=== PATIENT | female | born 2000 | race Caucasian/White ===

== ENCOUNTER 2021-11-11 15:13 | Day surgery (SDC) | payer OTHER ==
[2021-11-11] MEDS ORDERED: hydrALAZINE 20 MG/ML VIAL SLOW IVP PRN (15:43)
[2021-11-11] MEDS: Lactated Ringer's 1,000 ML IV SCH ×2 (16:15→17:00)
[2021-11-11] MEDS ORDERED: Acetaminophen 500 MG TAB PO SCH (16:15)
[2021-11-11 17:28] VITALS: BMI 29.7
[2021-11-11 17:39] LABS: Bilirubin Neg (Negative); Blood, Urine 250 (Negative); Clarity Clear (Clear); Glucose, Urine (Dipstick) Normal (Negative); Ketone, Urine Negative (Negative); Leukocyte Negative (Negative); Nitrite Negative (Negative); Protein, Urine (Dipstick) Negative (Neg-Trace); Specific Gravity, Urine 1.005 (1.002-1.036); Urobilinogen Normal mg/dL (Less than 2)
[2021-11-11 17:48] LABS: Hemoglobin 11.8 g/dL (12.0-15.5); Mean Corpuscular HGB CONC 34.3 g/dL (32.0-36.0); Mean Corpuscular Hemoglobin 31.3 pg (27.0-33.0); Mean Corpuscular Volume 91.2 fl (81.6-98.3); Mean Platelet Volume 12.1 fl (7.4-10.4); Platelet Count 209 10x3/uL (150-450); RBC Distribution Width 11.9 % (11.5-14.5); Red Blood Cell (RBC) Count 3.77 10x6/uL (3.90-5.03)
[2021-11-11 17:59] LABS: Urine Culture Reflex No No
[2021-11-11 18:00] LABS: ALT (SGPT) 9 U/L (8-55); AST (SGOT) 14 U/L (5-34); Albumin 3.4 g/dL (3.5-5.0); Alkaline Phosphatase 85 U/L (40-100); Anion Gap 17 mmol/L (10-20); BUN (Urea Nitrogen) 8 mg/dL (7.0-18.7); Bilirubin, Total 0.2 mg/dL (0.2-1.2); Calc. Creatinine Clearance 148 mL/min (70-130); Calcium 9.2 mg/dL (7.8-10.44); Carbon Dioxide 18 mmol/L (22-29); Chloride 107 mmol/L (98-107); Globulin 2.7 g/dL (2.4-3.5); Glucose 112 mg/dL (70-105); Potassium 3.4 mmol/L (3.5-5.1); Protein, Total 6.1 g/dL (6.0-8.3); Sodium 139 mmol/L (136-145)
[2021-11-11 18:02] LABS: RBC/HPF 21-50 HPF (0-3); Renal Epithelial 0-3 HPF (None Seen); Squamous Epithelial 0-3 HPF (0-3); WBC/HPF 0-3 HPF (0-3)
[2021-11-11 18:03] LABS: Bacteria/HPF Rare-Few HPF (None Seen); Transitional Epithelial 0-3 HPF (None Seen)
[2021-11-11 18:23] LABS: Band 1 % (5-11); Eosinophils 1 % (0-10); Lymphocytes 12 % (28-48); Monocytes 8 % (0-4); Myelocyte 2 % (0-0); Neutrophil 76 % (31-61)
[2021-11-11 18:24] LABS: MDiff Complete? YES; Platelet Morphology Comment Appears Adequate; RBC Morphology Normal
[2021-11-11] MEDS ORDERED: cefTRIAXone\\ROCEPHIN 1 GM in Sodium Chloride 0.9% 100 ML IVPB SCH (19:45)
[2021-11-11] MEDS ORDERED: Sodium Chloride 0.9% 500 ML IV SCH (19:45)
== END 2021-11-11 20:25 | disposition home or self-care (01) ==
LOC: CSHLD/OP 15:13
PROVIDERS: ATTEND Obstetrics & Gynecology
DX: O99.891 Other specified diseases and conditions complicating pregnancy (principal); M54.9 Dorsalgia, unspecified; R10.9 Unspecified abdominal pain; N89.8 Other specified noninflammatory disorders of vagina; N13.30 Unspecified hydronephrosis; Z3A.28 28 weeks gestation of pregnancy; Z88.8 Allergy status to other drugs, medicaments and biological substances
CPT/HCPCS: 51701; 76770; 80053; 81001; 85025; 87480; 87510; 87660; 96361; 96365; 99283; J0696; J3490

== ENCOUNTER 2021-12-23 12:22 | Day surgery (SDC) | payer OTHER ==
[2021-12-23] MEDS ORDERED: hydrALAZINE 20 MG/ML VIAL SLOW IVP PRN (13:54)
== END 2021-12-23 14:00 | disposition home health service (06) ==
LOC: CSHLD/OP 12:22
PROVIDERS: ATTEND Obstetrics & Gynecology
DX: O36.8130 Decreased fetal movements, third trimester, not applicable or unspecified (principal); O36.5930 Maternal care for other known or suspected poor fetal growth, third trimester, not applicable or unspecified; Z3A.34 34 weeks gestation of pregnancy; Z86.16 Personal history of COVID-19; Z88.8 Allergy status to other drugs, medicaments and biological substances
CPT/HCPCS: 99282

== ENCOUNTER 2022-01-11 19:52 | Day surgery (SDC) | payer BC, OTHER ==
[2022-01-11 20:26] VITALS: BMI 33.2
[2022-01-11 21:28] LABS: Fetal Membranes Rupture No Membranes Rupture (No Rupture)
[2022-01-11] MEDS ORDERED: hydrALAZINE 20 MG/ML VIAL SLOW IVP PRN (21:45)
== END 2022-01-11 23:40 | disposition home or self-care (01) ==
LOC: CSHLD/OP 19:52
PROVIDERS: ATTEND Obstetrics & Gynecology
DX: O47.1 False labor at or after 37 completed weeks of gestation (principal); Z3A.37 37 weeks gestation of pregnancy; Z86.16 Personal history of COVID-19; Z88.8 Allergy status to other drugs, medicaments and biological substances
CPT/HCPCS: 84112

== ENCOUNTER 2022-01-14 08:31 | Inpatient (IN) | payer BC, OTHER ==
[~2022-01-14 08:31] MED LIST: Bupivacaine 0.25% HCL 30 ML VIAL ONE; Bupivacaine HCl 0.5%/Epinephrine 1:200,000/PF 30 ml Vial ONE; ePHEDrine Sulfate 50 MG/10 ML VIAL ONE
[2022-01-14] MEDS ORDERED: hydrALAZINE 20 MG/ML VIAL SLOW IVP PRN (08:42)
[2022-01-14] MEDS ORDERED: Docusate 100 MG CAP PO PRN (08:42)
[2022-01-14] MEDS ORDERED: Butorphanol Tartrate 1 MG/ML VIAL SLOW IVP PRN (08:42)
[2022-01-14] MEDS ORDERED: Diphenoxylate HCl/Atropine Tablet PO PRN ×2 (08:42)
[2022-01-14] MEDS ORDERED: Acetaminophen 500 MG TAB PO PRN (08:42)
[2022-01-14] MEDS ORDERED: Misoprostol 200 MCG TAB PR PRN (08:42)
[2022-01-14] MEDS ORDERED: Lidocaine 1% (PF) 30 ML VIAL SC PRN (08:42)
[2022-01-14] MEDS ORDERED: Ondansetron PF 4 MG/2 ML Vial IVP PRN ×2 (08:42→13:55)
[2022-01-14] MEDS ORDERED: Promethazine HCl 25 MG/ML VIAL IM PRN ×2 (08:42→13:55)
[2022-01-14] MEDS ORDERED: Ibuprofen 800 MG TAB PO PRN (08:42)
[2022-01-14] MEDS ORDERED: HYDROcodone/Acetaminophen 5/325 mg Tablet PO PRN ×2 (08:42)
[2022-01-14] MEDS ORDERED: NS w/ Oxytocin 30 units 500 ML IV SCH ×2 (08:45)
[2022-01-14] MEDS ORDERED: Lactated Ringer's 1,000 ML IV SCH (08:45)
[2022-01-14 10:29] LABS: Hemoglobin 11.8 g/dL (12.0-15.5); Mean Corpuscular HGB CONC 33.3 g/dL (32.0-36.0); Mean Corpuscular Hemoglobin 29.1 pg (27.0-33.0); Mean Corpuscular Volume 87.4 fl (81.6-98.3); Mean Platelet Volume 12.3 fl (7.4-10.4); Platelet Count 205 10x3/uL (150-450); RBC Distribution Width 12.8 % (11.5-14.5); Red Blood Cell (RBC) Count 4.05 10x6/uL (3.90-5.03); White Blood Cell (WBC) Count 10.9 10x3/uL (3.5-10.5)
[2022-01-14 10:51] VITALS: BMI 32.9
[2022-01-14 10:56] LABS: Hep B Surf Ag Non-Reactive S/CO (NonReactive)
[2022-01-14 10:57] LABS: HBSAg Index 0.19 S/CO (0-0.99); Syphilis Antibody Nonreactive (Nonreactive); Syphilis Antibody Index 0.15 S/CO (<1.00 Non-Reactive)
[2022-01-14 11:10] LABS: HIV (1/2) Antibody/Antigen Non-Reactive (NonReactive); HIV 1/2 INDEX 0.21 S/CO (<1.00)
[2022-01-14 11:57] LABS: SARS-CoV-2 NAA Rapid Test Not Detected (NotDetected)
[2022-01-14] MEDS ORDERED: Fentanyl 2 mcg/Bup 0.1% Cadd 100 ML ONE (12:09)
[2022-01-14] MEDS ORDERED: diphenhydrAMINE 50 MG/ML VIAL IVP PRN (13:55)
[2022-01-14] MEDS ORDERED: Lactated Ringer's 500 ML IV PRN (13:55)
[2022-01-14] MEDS ORDERED: Moisturizing Cream (Eucerin) 113 GM JAR TOP PRN (13:55)
[2022-01-14] MEDS ORDERED: ePHEDrine Sulfate 50 MG/10 ML VIAL SLOW IVP PRN (13:55)
[2022-01-14] MEDS ORDERED: Naloxone HCl 0.4 mg/ml Vial IVP PRN ×2 (13:55)
[2022-01-14] MEDS ORDERED: Acetaminophen 325 MG TAB PO PRN (13:55)
[2022-01-14] MEDS ORDERED: Communication Order-Pharmacy FS SCH (14:00)
[2022-01-14] MEDS: Fentanyl 2 mcg/Bupivacaine 0.1% Cassette 100 ML EPIDURAL SCH (19:15)
[2022-01-14] MEDS ORDERED: Famotidine/PF 20 mg/2ml Vial ONE (22:59)
[2022-01-15] MEDS: Fentanyl 2 mcg/Bupivacaine 0.1% Cassette 100 ML EPIDURAL SCH (02:00)
[2022-01-15] MEDS ORDERED: Boostrix 0.5 ML (Tdap) VIAL IM ONE (04:16)
[2022-01-15] MEDS ORDERED: Zolpidem Tartrate 5 MG TAB PO PRN (04:16)
[2022-01-15] MEDS ORDERED: Lanolin Ointment 7 GM TUBE TOP PRN (04:16)
[2022-01-15] MEDS ORDERED: diphenhydrAMINE 25 MG CAP PO PRN (04:16)
[2022-01-15] MEDS ORDERED: Benzocaine-Menthol 82.5 ML CAN TOP PRN (04:16)
[2022-01-15] MEDS ORDERED: Milk Of Magnesia 30 ML UDCUP PO PRN (04:16)
[2022-01-15] MEDS ORDERED: Bisacodyl 10 MG SUPP PR PRN (04:16)
[2022-01-15] MEDS ORDERED: Misoprostol 200 MCG TAB VAG PRN (04:16)
[2022-01-15] MEDS ORDERED: Ondansetron PF 4 MG/2 ML Vial IVP PRN (04:16)
[2022-01-15] MEDS ORDERED: hydrALAZINE 20 MG/ML VIAL SLOW IVP PRN (04:16)
[2022-01-15] MEDS ORDERED: HYDROcodone/Acetaminophen 5/325 mg Tablet PO PRN ×2 (04:16)
[2022-01-15] MEDS ORDERED: Preparation H Ointment 28 GM TUBE PR PRN (04:16)
[2022-01-15] MEDS ORDERED: NS w/ Oxytocin 30 units 500 ML IV SCH (04:30)
[2022-01-15] MEDS ORDERED: Famotidine/PF 20 mg/2ml Vial SLOW IVP SCH (07:00)
[2022-01-15] MEDS: Prenatal Vitamin 1 TAB PO SCH (09:32)
[2022-01-15] MEDS: Ferrous Sulfate 325 MG TAB PO SCH ×2 (09:32→17:31)
[2022-01-15] MEDS: Docusate 100 MG CAP PO SCH ×2 (09:32→21:50)
[2022-01-15] MEDS: Ibuprofen 800 MG TAB PO SCH ×3 (12:34→21:50)
[2022-01-15 23:58] VITALS: TEMP 97.6
[2022-01-16] MEDS: Ibuprofen 800 MG TAB PO SCH (05:33)
[2022-01-16] MEDS: Ferrous Sulfate 325 MG TAB PO SCH (07:09)
[2022-01-16 07:50] VITALS: BP 111/76
[2022-01-16] MEDS: Docusate 100 MG CAP PO SCH (08:02)
[2022-01-16] MEDS: Prenatal Vitamin 1 TAB PO SCH (08:02)
== END 2022-01-16 12:40 | disposition home or self-care (01) | DRG 805 ==
LOC: CSHLD/OP 08:31 → CSHLD 09:48 → CSHPED 01-15 09:20
PROVIDERS: ADMIT Obstetrics & Gynecology; ATTEND Obstetrics & Gynecology
PROC: 10H07YZ Insertion of Other Device into Products of Conception, Via Natural or Artificial Opening (ICD-10-PCS; 2022-01-14)
PROC: 10907ZC Drainage of Amniotic Fluid, Therapeutic from Products of Conception, Via Natural or Artificial Opening (ICD-10-PCS; 2022-01-14)
PROC: 3E033VJ Introduction of Other Hormone into Peripheral Vein, Percutaneous Approach (ICD-10-PCS; 2022-01-14)
PROC: 10D07Z6 Extraction of Products of Conception, Vacuum, Via Natural or Artificial Opening (ICD-10-PCS; principal; 2022-01-15)
DX: O36.5930 Maternal care for other known or suspected poor fetal growth, third trimester, not applicable or unspecified (principal); O41.1230 Chorioamnionitis, third trimester, not applicable or unspecified; Z37.0 Single live birth; O99.354 Diseases of the nervous system complicating childbirth; Z20.822 Contact with and (suspected) exposure to COVID-19; Z3A.37 37 weeks gestation of pregnancy; Z86.16 Personal history of COVID-19; G43.909 Migraine, unspecified, not intractable, without status migrainosus; F41.9 Anxiety disorder, unspecified; F32.A Depression, unspecified; O99.344 Other mental disorders complicating childbirth; Z90.89 Acquired absence of other organs; Z79.899 Other long term (current) drug therapy; O76 Abnormality in fetal heart rate and rhythm complicating labor and delivery; O32.8XX0 Maternal care for other malpresentation of fetus, not applicable or unspecified
CPT/HCPCS: 36415; 51702; 84112; 85027; 86780; 86850; 86900; 86901; 87340; 87389; 88307; 99283; 99285; J2405; J2590; S0020; S0028; U0002

== ENCOUNTER 2022-04-18 07:29 | Emergency (ER) | payer BC, OTHER ==
[2022-04-18 08:01] LABS: #Eosinphils 0.1 10x3/uL (0.0-0.5); #Monocytes 0.8 10x3/uL (0.0-1.1); #Neutrophils 6.5 10x3/uL (1.5-8.4); %Basophils 0.4 % (0.0-2.0); %Eosinophils 1.3 % (0.0-6.0); %Lymphocytes 23.7 % (18.0-47.0); %Monocytes 8.3 % (0.0-10.0); Mean Corpuscular HGB CONC 34.5 g/dL (32.0-36.0); Mean Corpuscular Hemoglobin 29.7 pg (27.0-33.0); Mean Corpuscular Volume 86.2 fl (81.6-98.3); Mean Platelet Volume 11.4 fl (7.4-10.4); Platelet Count 256 10x3/uL (150-450); RBC Distribution Width 13.5 % (11.5-14.5); Red Blood Cell (RBC) Count 4.71 10x6/uL (3.90-5.03); White Blood Cell (WBC) Count 9.8 10x3/uL (3.5-10.5)
[2022-04-18] MEDS ORDERED: Ondansetron PF 4 MG/2 ML Vial ONE (08:02)
[2022-04-18] MEDS ORDERED: Morphine 4 MG/ML VIAL ONE (08:07)
[2022-04-18 08:11] LABS: BHCG - Serum Negative (NEGATIVE); Pregs Control Background? CLEAR/WHITE (CLR/WHITE); Pregs Control Bar Appear? YES (CONTROL BAR)
[2022-04-18 08:14] LABS: ALT (SGPT) 31 U/L (8-55); AST (SGOT) 21 U/L (5-34); Albumin 4.3 g/dL (3.5-5.0); Alkaline Phosphatase 51 U/L (40-110); Anion Gap 16 mmol/L (10-20); BUN (Urea Nitrogen) 10 mg/dL (7.0-18.7); Bilirubin, Total 0.2 mg/dL (0.2-1.2); Calc. Creatinine Clearance 0 mL/min (70-130); Calcium 9.1 mg/dL (7.8-10.44); Carbon Dioxide 19 mmol/L (22-29); Chloride 109 mmol/L (98-107); Estimated GFR 60; Glucose 115 mg/dL (70-105); Potassium 3.6 mmol/L (3.5-5.1); Protein, Total 7.3 g/dL (6.0-8.3); Sodium 140 mmol/L (136-145)
[2022-04-18 09:06] LABS: Bilirubin Neg (Negative); Blood, Urine 250 (Negative); Clarity Clear (Clear); Glucose, Urine (Dipstick) Normal (Negative); Ketone, Urine Negative (Negative); Leukocyte Negative (Negative); Nitrite Negative (Negative); Protein, Urine (Dipstick) 15 mg/dl (Neg-Trace); Specific Gravity, Urine 1.005 (1.005-1.030); Urobilinogen Normal mg/dL (Less than 2); pH, Urine 6.5 (5.0-9.0)
[2022-04-18 09:29] LABS: Squamous Epithelial 0-3 HPF (0-3); WBC/HPF 0-3 HPF (0-3)
[2022-04-18 09:30] LABS: Bacteria/HPF 2+ HPF (None Seen)
[2022-04-18] MEDS ORDERED: Ketorolac Tromethamine 30 MG/ML VIAL ONE (09:40)
[2022-04-18] MEDS ORDERED: cefTRIAXone\\ROCEPHIN 2 GM in Sodium Chloride 0.9% 100 ML IVPB SCH (09:45)
[2022-04-18] MEDS ORDERED: Fentanyl 100 MCG/2 ML VIAL ONE (10:24)
== END 2022-04-18 12:45 | disposition home or self-care (01) ==
LOC: CSHERS 07:29
DX: N13.2 Hydronephrosis with renal and ureteral calculous obstruction (principal); N39.0 Urinary tract infection, site not specified; G43.909 Migraine, unspecified, not intractable, without status migrainosus
CPT/HCPCS: 74176; 80053; 81003; 81015; 84703; 85025; 96374; 96375; J0696; J1885; J2270; J2405; J3010; J3490

== ENCOUNTER 2024-02-25 14:42 | Emergency (ER) | payer MEDICAID, SELFPAY ==
[2024-02-25] MEDS ORDERED: Ondansetron ODT 4 MG TAB ONE (15:04)
[2024-02-25] MEDS ORDERED: Acetaminophen 500 MG TAB ONE (15:04)
[2024-02-25 15:13] LABS: #Basophils 0.08 10x3/uL (0.0-0.2); #Eosinphils 0.12 10x3/uL (0.0-0.5); #Monocytes 0.71 10x3/uL (0.0-1.1); %Basophils 0.7 % (0.0-2.0); %Neutrophils 71.7 % (40.0-75.0); Hematocrit 39.5 % (34.9-44.5); Hemoglobin 13.4 g/dL (12.0-15.5); Mean Corpuscular HGB CONC 33.9 g/dL (32.0-36.0); Mean Corpuscular Hemoglobin 31.3 pg (27.0-33.0); Mean Corpuscular Volume 92.3 fL (81.6-98.3); Mean Platelet Volume 10.9 fL (7.4-10.4); Platelet Count 206 10x3/uL (150-450); RBC Distribution Width 12.1 % (11.5-14.5); Red Blood Cell (RBC) Count 4.28 10x6/uL (3.90-5.03); White Blood Cell (WBC) Count 11.9 10x3/uL (3.5-10.5)
[2024-02-25 15:28] LABS: ALT (SGPT) 11 U/L (8-55); AST (SGOT) 16 U/L (5-34); Albumin 3.6 g/dL (3.5-5.0); Alkaline Phosphatase 54 U/L (40-110); Anion Gap 13 mmol/L (10-20); BUN (Urea Nitrogen) 10 mg/dL (7.0-18.7); Bilirubin, Total 0.2 mg/dL (0.2-1.2); Calc. Creatinine Clearance 0 mL/min (70-130); Calcium 9.7 mg/dL (7.8-10.44); Carbon Dioxide 21 mmol/L (22-29); Chloride 105 mmol/L (98-107); Estimated GFR 125; Globulin 3.5 g/dL (2.4-3.5); Glucose 86 mg/dL (70-105); Lipase 29 U/L (8-78); Potassium 3.8 mmol/L (3.5-5.1); Protein, Total 7.1 g/dL (6.0-8.3); Sodium 135 mmol/L (136-145)
[2024-02-25 16:43] LABS: Bilirubin Neg (Negative); Blood, Urine 10 (Negative); Clarity Clear (Clear); Glucose, Urine (Dipstick) Normal (Negative); Ketone, Urine Negative (Negative); Leukocyte Negative (Negative); Nitrite Negative (Negative); Protein, Urine (Dipstick) Negative (Neg-Trace); Urobilinogen Normal mg/dL (Less than 2)
[2024-02-25 17:05] LABS: Bacteria/HPF 2+ HPF (None Seen); CAUTI Indications for Culture Pelvic or flank pain; RBC/HPF 0-3 HPF (0-3); Squamous Epithelial 0-3 HPF (0-3); WBC/HPF 0-3 HPF (0-3)
[2024-02-25 17:06] LABS: Urine Culture Reflex No No
== END 2024-02-25 17:33 | disposition home or self-care (01) ==
LOC: CSHERS 14:42
DX: O99.891 Other specified diseases and conditions complicating pregnancy (principal); R10.30 Lower abdominal pain, unspecified; R82.71 Bacteriuria; Z3A.13 13 weeks gestation of pregnancy
CPT/HCPCS: 36415; 76856; 80053; 81001; 83690; 84702; 85025; 86900; 86901; Q0162